=== PATIENT | female | born 1985 | race Two or more races ===

== ENCOUNTER 2024-05-07 00:35 | Emergency (ER) | payer MEDICAID, SELFPAY ==
[2024-05-07 00:35] VITALS: BMI 35.4
--- NOTE | 2024-05-07 00:43 | EKG_ITS ---
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
[2024-05-07 01:51] VITALS: BP 127/89; PULSE 76; RESP 16; TEMP 36.6; O2SAT 100
--- NOTE | 2024-05-07 02:06 | XR_ITS ---
Examination: PA chest single view TECHNIQUE: Upright PA chest single view Exam date and time: May 07, 2024 0210 hours INDICATIONS: Left-sided chest pain today FINDINGS: Normal heart size Lungs are clear. The osseous structures are intact IMPRESSION: No active disease
[2024-05-07 03:02] LABS: Basophils # (Auto) 0.1 Thou/mm3 (0.0-0.2); Basophils % (Auto) 0 % (0-2.5); Eosinophils # (Auto) 0.2 Thou/mm3 (0.0-0.5); Eosinophils % (Auto) 1 % (0-10); Hemoglobin 14.2 g/dL (12.0-16.0); Immature Granulocytes % (Auto) 0 % (0-0); Immature Granulocytes Auto 0.03 Thou/mm3 (0.00-0.00); Lymphocytes # (Auto) 3.7 Thou/mm3 (1.0-4.8); Lymphocytes % (Auto) 31 % (10-50); Mean Corpuscular HGB Conc 34.6 g/dl (31.0-37.0); Mean Corpuscular Hemoglobin 31.6 pg (25.0-35.0); Mean Corpuscular Volume 91 fL (80-100); Monocytes # (Auto) 0.6 Thou/mm3 (0.0-0.8); Monocytes % (Auto) 5 % (0-12); Neutrophils # (Auto) 7.2 Thou/mm3 (1.8-7.7); Neutrophils % (Auto) 61 % (37-80); Nucleated Red Blood Cell % 0 /100 WBC (0); Platelet Count 326 Thou/mm3 (140-440); RDW Standard Deviation 40.5 fL (36.4-46.3); Red Blood Count 4.49 Miln/mm3 (4.00-5.20); White Blood Count 11.7 Thou/mm3 (3.6-11.0)
[2024-05-07 03:21] LABS: Alanine Aminotransferase 43 U/L (10-49); Albumin, Serum 4.6 gm/dL (3.5-5.0); Albumin/Globulin Ratio 1.5 (1.2-2.2); Alkaline Phosphatase 95 U/L (46-116); Anion Gap 7 (7-16); Aspartate Amino Transferase 16 U/L (0-34); BUN/Creatinine Ratio 11 Ratio (12-20); Bilirubin,Total 0.5 mg/dL (0.3-1.2); Blood Urea Nitrogen 9 mg/dL (9-23); Calcium 10.1 mg/dL (8.3-10.6); Calcium (Corrected) 10.1 mg/dL (8.5-10.1); Carbon Dioxide 27.8 mMol/L (20.0-31.0); Chloride 104 mMol/L (98-107); Creatinine (Component) 0.8 mg/dL (0.6-1.3); Estimated Creatinine Clearance 98.2 mL/min (>60); Glucose 84 mg/dL (74-106); Osmolality,Calculated 275 (275-295); Sodium 139 mMol/L (136-145); Total Protein 7.6 gm/dL (5.7-8.2); Troponin I < 0.002 ng/mL (0.0-0.045); eGFR > 60 See Note
[2024-05-07 03:23] LABS: D-Dimer < 250 ng/mL (<600)
--- NOTE | 2024-05-07 03:43 | EDNOTE_ITS ---
<Statement entered by Anna Verdin MD - 05/07/24 05:44> As co-signing physician, I was present and available for consult prn. I concur with the plan and care as documented by the midlevel provider. ED Chest Pain RME/HPI General Chief Complaint: Chest Pain Stated Complaint: LFT CHEST PAIN RAD TO LEFT ARM X4HRS Time Seen by Provider: 05/07/24 02:06 Arrival date/time: 05/07/24 00:35 38F with history of anxiety presents to ED with 4 hours of CP and some L arm numbness/tingling that also goes to face. Patient states her anxiety attacks do not usually feel like this. Limitations: no limitations Related Data Home Medications ?Medication ?Instructions ?Recorded ?Confirmed docosanol 10 % topical cream 10 08/23/17 (Abreva) Previous Rx's ?Medication ?Instructions ?Recorded acyclovir 800 mg tablet 800 mg PO Q6H viral syndrome #35 08/23/17 tabs cyclobenzaprine 7.5 mg tablet 7.5 mg PO BID PRN muscle spasm #14 06/28/20 tabs methylprednisolone 4 mg tablets in 4 mg PO .as directed #21 tabs 06/28/20 a dose pack (Medrol (Yuri)) naproxen 500 mg tablet 500 mg PO BID PRN pain #30 tabs 06/28/20 diazepam 10 mg tablet (Valium) 10 mg PO BID PRN muscle spasm #20 08/03/21 tabs naproxen 500 mg tablet (Naprosyn) 500 mg PO BID PRN pain #30 tabs 08/03/21 ibuprofen 600 mg tablet 600 mg PO Q6H #30 tabs 10/15/23 metoclopramide HCl 10 mg tablet 10 mg PO Q6H PRN nausea and 10/15/23 (Reglan) vomiting #30 tabs Allergies Allergy/AdvReac Type Severity Reaction Status Date / Time No Known Allergies Allergy Verified 05/07/24 00:38 Review of Systems Review of Systems Systems Reviewed: All systems reviewed, normal except as documented Constitutional Constitutional: Reports system reviewed and no additional complaints, except as documented, Denies fever(s) and Denies headache(s) ENT Ears, Nose, Mouth, and Throat: Denies disequilibrium and Denies headache(s) Cardiovascular Cardiovascular: Reports system reviewed and no additional complaints, except as documented, Reports as per HPI, Reports chest pain, Denies dyspnea and Reports radiating jaw, neck or arm pain Respiratory Respiratory: Reports system reviewed and no additional complaints, except as documented, Denies cough and Denies dyspnea Gastrointestinal Gastrointestinal: Reports system reviewed and no additional complaints, except as documented, Denies abdominal pain, Denies nausea and Denies vomiting Musculoskeletal Musculoskeletal: Reports numbness and Reports tingling Neurologic Neurologic: Reports system reviewed and no additional complaints, except as documented, Reports as per HPI, Denies confusion, Denies disequilibrium, Denies headache(s), Reports numbness and Reports tingling Psychiatric Psychiatric: Denies confusion Past Medical History Past Medical History CARDIAC: Negative Cardiac Disorders or Congestive Heart Failure RESPIRATORY: Negative Chronic Obstructive Pulmonary Disease (COPD) or Asthma GENITOURINARY: Negative Renal Disease ENDOCRINE: Negative Diabetes Mellitus Type 1 or Diabetes Mellitus Type 2 HEMATOLOGIC: Positive Leukemia; Negative Sickle Cell Disease Social History SMOKING STATUS: Never smoker ED Exam General Limitations: Present no limitations General appearance: Present alert and in no apparent distress Head Head exam: Present atraumatic Eye Eye exam: Present normal appearance, PERRL and EOMI ENT ENT exam: Present normal exam, normal oropharynx and mucous membranes moist Neck Neck exam: Present normal inspection, full ROM and trachea midline Chest Chest inspection: Present normal inspection and symmetric chest wall rise Respiratory Respiratory exam: Present normal lung sounds bilaterally Cardiovascular Cardiovascular exam: Present regular rate, normal rhythm and normal heart sounds Abdominal Exam Abdominal exam: Present soft and normal bowel sounds Extremities Exam Extremities exam: Present normal inspection and full ROM Back Exam Back exam: Present normal inspection and full ROM Neurological Exam Neurological exam: Present alert, oriented X3 and CN II-XII intact Psychiatric Psychiatric exam: Present normal affect and normal mood Skin Skin exam: Present warm, dry, intact and normal color Course Quality Measures none Orders Category Date Time Status EKG (ED ONLY) *Do not use* NOW Care 05/07/24 00:43 Completed EKG (ED Only) Stat Exams 05/07/24 00:43 Draft XR chest 1V portable Stat Exams 05/07/24 02:06 Taken CBC Stat Lab 05/07/24 02:34 Completed Comprehensive Metabolic Panel Stat Lab 05/07/24 02:34 Completed D-Dimer Stat Lab 05/07/24 02:34 Completed Troponin I Stat Lab 05/07/24 02:34 Completed Vital Signs Vital signs: Vital Signs Temperature 97.9 F 12/11/24 01:51 Pulse Rate 76 05/07/24 01:51 Respiratory Rate 16 05/07/24 01:51 Blood Pressure 127/89 H 05/07/24 01:51 Pulse Oximetry (%) 100 05/07/24 01:51 Oxygen Delivery Method Room Air 05/07/24 01:51 O2 at 100% on RA and WNLs Chest Pain MDM Narrative MDM Narrative:: 38F with history of anxiety presents to ED with 4 hours of CP and some L arm numbness/tingling that also goes to face. Patient states her anxiety attacks do not usually feel like this. Physical exam reveals lungs. RRR. Patient is afebrile, calm, and alert. EKG is NSR. Wet CXR normal pending official report. Normal trop and D-dimer. CMP and CBC unremarkable. Patient observed for 3 hours in ED with no neg changes. Patient data External records reviewed:: [facility] [place] previous records Clinical information provided by:: patient Social determinants that could affect healthcare access:: mental health Patient has the following chronic illnesses:: anxiety How is presenting disease/condition affected by chronic disease/condition?: exacerbated by Evaluation data The following diagnostics were reviewed and interpreted by me:: lab results, radiology exam(s) and EKG tracing(s) Lab and/or radiology exams considered but not ordered:: ordered Interpretation Summary: above Medications / Prescriptions Medications or Prescriptions considered but not ordered:: not ordered Medication administrations:: n/a Consultations Consultation(s) initiated? (list below): No Diagnosis Chest Pain Differential Diagnosis: fracture of rib, pneumothorax, stable angina, unstable angina pectoris, atypical chest pain, st elevation myocardial infarction, costochondritis, chest pain, biliary colic and other (PE) Most likely diagnosis given after review of the tests above:: atypical chest pain Admission Indicated Admission indicated?: not indicated Admission Request Was there a request for admission?: No Disposition Plan Disposition Plan: Discharge Discharge Attestation Discharge Attestation: The patient and all family members were given an opportunity to ask questions and understood the discharge instructions. Discharge instructions specifically effects, indications for sooner follow up or return to the emergency department, and the expected course of current diagnosis. Patient condition: Stable Discharge Plan Plan Patient Disposition: HOME (Self Care) Disposition Comment: Stable Prescriptions/Referrals Prescriptions/Med Rec: No Action docosanol [Abreva] 10 % Cream 10 acyclovir 800 mg tablet 800 mg PO Q6H Qty: 35 0RF cyclobenzaprine 7.5 mg tablet 7.5 mg PO BID PRN (Reason: muscle spasm) Qty: 14 0RF methylprednisolone [Medrol (Yuri)] 4 mg tablets,dose pack 4 mg PO .as directed Qty: 21 0RF naproxen 500 mg tablet 500 mg PO BID PRN (Reason: pain) Qty: 30 0RF naproxen [Naprosyn] 500 mg tablet 500 mg PO BID PRN (Reason: pain) Qty: 30 0RF diazepam [Valium] 10 mg tablet 10 mg PO BID PRN (Reason: muscle spasm) Qty: 20 0RF ibuprofen 600 mg tablet 600 mg PO Q6H Qty: 30 0RF metoclopramide HCl [Reglan] 10 mg tablet 10 mg PO Q6H PRN (Reason: nausea and vomiting) Qty: 30 0RF Referrals: No Primary/Family,Physician [Primary Care Provider] - In 1 week Problem List Clinical Impression: Atypical chest pain Patient/Caregiver Discharge Instructions Education Materials: ED Pain, Acute, Uncertain Cause Additional Instructions: Please follow-up with PCP within 24-48 hours and return immediately if symptoms worsen. Print Language: Burkinan Stand Alone Forms: Patient Portal Info Letter PA/BELLPERSON Supervising Physician SAJI/YRAI Supervising Physician: Dr. Verdin
== END 2024-05-07 03:47 | disposition home or self-care (01) ==
PROVIDERS: Physician Assistant; Emergency Provider Emergency Medicine
DX: R07.89 Other chest pain (principal)
CPT/HCPCS: 36415; 71045; 80053; 84484; 85025; 85379; 93005; 99283

== ENCOUNTER 2024-05-25 21:25 | Emergency (ER) | payer MEDICAID, SELFPAY ==
[2024-05-25 21:25] VITALS: BMI 34.7
[2024-05-25 21:46] VITALS: BP 126/93; PULSE 88; RESP 18; TEMP 37.2; O2SAT 97
--- NOTE | 2024-05-25 21:49 | PD.EDRME ---
Rapid Medical Screening Exam RME Arrival date/time: 05/25/24 21:25 38 year old female present to Ed for c/o of n/v for 1 week + influenza I have greeted and performed a focused initial assessment of this patient. A comprehensive ED assessment and evaluation of the patient, analysis of all test results, and completion of the medical decision making process will be conducted by additional ED providers. Chief Complaint: Nausea/Vomiting/Diarrhea Time Seen by Provider: 05/25/24 21:29 Vital signs: Vital Signs Temperature 99 F 05/25/24 21:46 Pulse Rate 88 05/25/24 21:46 Respiratory Rate 18 05/25/24 21:46 Blood Pressure 126/93 H 05/25/24 21:46 Pulse Oximetry (%) 97 05/25/24 21:46 Oxygen Delivery Method Room Air 05/25/24 21:46
[2024-05-25] MEDS: ONDANSETRON INJ 2 MG/ML INJ 2 ML 4 MG IV (22:10)
[2024-05-25] MEDS: SODIUM CHLORIDE 0.9% 1000 ML 1,000 ML 999 ML IV (22:10)
--- NOTE | 2024-05-25 22:18 | EDNOTE_ITS ---
Nausea/Vomit./Diarrhea-RME/HPI General Chief complaint: Nausea/Vomiting/Diarrhea Stated complaint: NAUSEA / DIARRHEA X 5DAYS Time Seen by Provider: 05/25/24 21:29 Arrival date/time: 05/25/24 21:25 RME / HPI RME / HPI Narrative: 05/25/24 21:25 38 year old female present to Ed for c/o of n/v for 1 week + influenza I have greeted and performed a focused initial assessment of this patient. A comprehensive ED assessment and evaluation of the patient, analysis of all test results, and completion of the medical decision making process will be conducted by additional ED providers. ------ Dr. Barron?s Main ED Evaluation: 38yo female presents to the ED for complaints of flu-like symptoms x 5 days. Patient states she's had a decreased intake for the last 5 days. She endorses having associated body aches, N/V/D, a headache, and a cough. She states she tried having some crackers and a soda today, but was not able to tolerate it today, so she came in for evaluation. She did not get her flu shot this year. She denies any fever, chills or any other associated symptoms. Denies any possibility of being . No known allergies. Related Data Home Medications ?Medication ?Instructions ?Recorded ?Confirmed docosanol 10 % topical cream 10 08/23/17 (Abreva) Previous Rx's ?Medication ?Instructions ?Recorded acyclovir 800 mg tablet 800 mg PO Q6H viral syndrome #35 08/23/17 tabs cyclobenzaprine 7.5 mg tablet 7.5 mg PO BID PRN muscle spasm #14 06/28/20 tabs methylprednisolone 4 mg tablets in 4 mg PO .as directed #21 tabs 06/28/20 a dose pack (Medrol (Yuri)) naproxen 500 mg tablet 500 mg PO BID PRN pain #30 tabs 06/28/20 diazepam 10 mg tablet (Valium) 10 mg PO BID PRN muscle spasm #20 08/03/21 tabs naproxen 500 mg tablet (Naprosyn) 500 mg PO BID PRN pain #30 tabs 08/03/21 ibuprofen 600 mg tablet 600 mg PO Q6H #30 tabs 10/15/23 metoclopramide HCl 10 mg tablet 10 mg PO Q6H PRN nausea and 10/15/23 (Reglan) vomiting #30 tabs acetaminophen 325 mg tablet (Pain 650 mg (2 x 325 mg) PO Q6H PRN 05/26/24 Relief (acetaminophen)) fever or pain 5 days #40 tabs diphenhydramine HCl 25 mg capsule 25 mg PO TID PRN nausea and 05/26/24 (Allergy (diphenhydramine)) vomiting #20 caps ibuprofen 600 mg tablet 600 mg PO Q6H PRN fever or pain 05/26/24 #30 tabs metoclopramide HCl 10 mg tablet 10 mg PO Q6H PRN nausea and 05/26/24 vomiting #14 tabs nitrofurantoin 100 mg PO Q12H 5 days #10 caps 05/26/24 monohydrate/macrocrystals 100 mg capsule (Macrobid) Allergies Allergy/AdvReac Type Severity Reaction Status Date / Time No Known Allergies Allergy Verified 05/07/24 00:38 Review of Systems Review of Systems Systems Reviewed: All systems reviewed, normal except as documented Past Medical History Past Medical History CARDIAC: Negative Cardiac Disorders or Congestive Heart Failure RESPIRATORY: Negative Chronic Obstructive Pulmonary Disease (COPD) or Asthma GENITOURINARY: Negative Renal Disease ENDOCRINE: Negative Diabetes Mellitus Type 1 or Diabetes Mellitus Type 2 HEMATOLOGIC: Positive Leukemia; Negative Sickle Cell Disease Social History SMOKING STATUS: Never smoker ED Exam Narrative Physical exam: GENERAL APPEARANCE: alert and oriented x 4, is actively coughing, well- developed, well-nourished, no acute distress VITALS: All vitals were reviewed and the pulse ox is 97% on room air, which is normal according to my interpretation. HEENT: Normocephalic, atraumatic; pupils equal, round, reactive to light; EOMI; mucous membranes pink, moist; oropharynx clear NECK: Supple LUNGS: CTABL; no wheezes, no rales, no rhonchi HEART: Regular rate, regular rhythm; normal S1, S2; no murmurs ABDOMEN: non distended; normal BS; soft, no tenderness, no guarding, no rebound; no masses, no organomegaly, no hernia BACK: no CVA tenderness EXTREMITIES: atraumatic; no edema NEUROLOGIC: awake; alert and oriented x4; cranial nerves II-XII grossly intact; no focal sensory or motor deficits PSYCHIATRIC: appropriate mood and affect SKIN: warm, dry, normal color; no rashes Course Quality Measures none Orders Category Date Time Status CBC Stat Lab 05/25/24 23:05 Completed CMP [Comprehensive Metabolic Panel] Stat Lab 05/25/24 23:05 Completed HCG,Qualitative Serum Stat Lab 05/25/24 23:05 Completed Lipase Stat Lab 05/25/24 23:05 Completed Strep A Rapid Stat Lab 05/25/24 22:05 Completed UA [Urinalysis] Stat Lab 05/25/24 22:08 Completed Urine Culture Stat Lab 05/25/24 22:17 Received Acetaminophen Tab [Tylenol ES Tab] Med 05/25/24 22:28 Discontinued 1,000 mg PO X1 ONE DiphenhydrAMINE INJ [Benadryl Inj] Med 05/26/24 00:10 Discontinued 12.5 mg IVP X1 ONE Ibuprofen Tab [Motrin Tab] Med 05/25/24 22:28 Discontinued 600 mg PO X1 ONE Metoclopramide Inj [Reglan Inj] Med 05/26/24 00:10 Discontinued 10 mg IVP X1 ONE Ondansetron Inj [Zofran Inj] Med 05/25/24 21:48 Discontinued 4 mg IV X1 ONE Sodium Chloride 0.9% 1000 ml [Ns] 1,000 ml Med 05/25/24 21:48 Discontinued IV 999 mls/hr Reevaluation(s) Reevaluation #1: Patient states she feels significantly better after receiving Reglan and feels comfortable going home. Time: 01:25 Vital Signs Vital signs: Vital Signs Temperature 99 F 05/25/24 21:46 Pulse Rate 88 05/25/24 21:46 Respiratory Rate 18 05/25/24 21:46 Blood Pressure 126/93 H 05/25/24 21:46 Pulse Oximetry (%) 97 05/25/24 21:46 Oxygen Delivery Method Room Air 05/25/24 21:46 Nausea/Vomiting/Diarrhea MDM Narrative MDM Narrative:: Scribe Attestation: 05/25/24 Anastasia Neil am scribing for and in the presence of Dr. Barron. Patient data External records reviewed:: [facility] previous records (Per chart review, patient was seen here on 05/07/24 for atypical chest pain.) Clinical information provided by:: patient Social determinants that could affect healthcare access:: none Patient has the following chronic illnesses:: leukemia How is presenting disease/condition affected by chronic disease/condition?: uneffected by Evaluation data The following diagnostics were reviewed and interpreted by me:: lab results Lab and/or radiology exams considered but not ordered:: none Interpretation Summary: CBC is normal, CMP is normal, Lipase is normal, HCG is negative, UA is positive for a UTI, according to my interpretation. Medications / Prescriptions Medications / Prescriptions considered but not ordered:: none Medication administrations:: Medication Administration History Discontinued Medications Acetaminophen (Acetaminophen 500 Mg Tablet) 1,000 mg PO X1 ONE Stop: 05/25/24 22:29 Last Admin: 05/25/24 22:56 Dose: 1,000 mg Documented By: MORENITA Diphenhydramine HCl (Diphenhydramine Inj 50 Mg/Ml Vial) 12.5 mg IVP X1 ONE Stop: 05/26/24 00:11 Last Admin: 05/26/24 00:35 Dose: 12.5 mg Documented By: Sodium Chloride (Ns) 1,000 mls @ 999 mls/hr IV .Q1H1M ONE Stop: 05/25/24 22:48 Last Infusion: 05/25/24 22:41 Dose: Infused Documented By: Admin: 05/25/24 22:10 Dose: 999 mls/hr Documented By: RICHELLE Ibuprofen (Ibuprofen Tab 600 Mg Tablet) 600 mg PO X1 ONE Stop: 05/25/24 22:29 Last Admin: 05/25/24 22:56 Dose: 600 mg Documented By: MORENITA Metoclopramide HCl (Metoclopramide Inj 5 Mg/Ml Vial 2 Ml) 10 mg IVP X1 ONE; Protocol Stop: 05/26/24 00:11 Last Admin: 05/26/24 00:31 Dose: 10 mg Documented By: Ondansetron HCl (Ondansetron Inj 2 Mg/Ml Inj 2 Ml) 4 mg IV X1 ONE; Protocol Stop: 05/25/24 21:49 Last Admin: 05/25/24 22:10 Dose: 4 mg Documented By: RICHELLE see above Consultations Consultation(s) initiated? (list below): No Diagnosis Nausea Differential Diagnosis: dehydration and other (COVID, Influenza, viral syndrome, electrolyte abnormality) Most likely diagnosis given after review of the tests above:: see below Admission Indicated Admission indicated?: not indicated Admission Request Was there a request for admission?: No Disposition Plan Disposition Plan: Discharge Discharge Attestation Discharge Attestation: The patient and all family members were given an opportunity to ask questions and understood the discharge instructions. Discharge instructions specifically effects, indications for sooner follow up or return to the emergency department, and the expected course of current diagnosis. Patient condition: Stable Discharge Plan Plan Patient Disposition: HOME (Self Care) Disposition Comment: Stable for discharge home Patient condition on transfer: Stable Prescriptions/Referrals Prescriptions/Med Rec: New metoclopramide HCl 10 mg tablet 10 mg PO Q6H PRN (Reason: nausea and vomiting) Qty: 14 0RF Rx Instructions: You should take this medicine with a half a tab of Benadryl. This is for nausea. diphenhydramine HCl [Allergy (diphenhydramine)] 25 mg capsule 25 mg PO TID PRN (Reason: nausea and vomiting) Qty: 20 0RF Rx Instructions: You should take half of 1 of these caps with your metoclopramide for nausea. nitrofurantoin monohyd/m-cryst [Macrobid] 100 mg capsule 100 mg PO Q12H 5 Days Qty: 10 0RF Rx Instructions: must administer with a meal/food acetaminophen [Pain Relief (acetaminophen)] 325 mg tablet 650 mg PO Q6H PRN (Reason: fever or pain) 5 Days Qty: 40 0RF ibuprofen 600 mg tablet 600 mg PO Q6H PRN (Reason: fever or pain) Qty: 30 0RF No Action docosanol [Abreva] 10 % Cream 10 acyclovir 800 mg tablet 800 mg PO Q6H Qty: 35 0RF cyclobenzaprine 7.5 mg tablet 7.5 mg PO BID PRN (Reason: muscle spasm) Qty: 14 0RF methylprednisolone [Medrol (Yuri)] 4 mg tablets,dose pack 4 mg PO .as directed Qty: 21 0RF naproxen 500 mg tablet 500 mg PO BID PRN (Reason: pain) Qty: 30 0RF naproxen [Naprosyn] 500 mg tablet 500 mg PO BID PRN (Reason: pain) Qty: 30 0RF diazepam [Valium] 10 mg tablet 10 mg PO BID PRN (Reason: muscle spasm) Qty: 20 0RF ibuprofen 600 mg tablet 600 mg PO Q6H Qty: 30 0RF metoclopramide HCl [Reglan] 10 mg tablet 10 mg PO Q6H PRN (Reason: nausea and vomiting) Qty: 30 0RF Referrals: [facility] [Outside] - In 1 week No Primary/Family,Physician [Primary Care Provider] - In 1 week Problem List Clinical Impression: Urinary tract infection, Influenza A, Vomiting Patient/Caregiver Discharge Instructions Discharge Activity: activity as tolerated Education Materials: Urinary Tract Infections in Women, Understanding Urinary Tract ..., Self-Care for Vomiting and Diarrhea, The Flu (Influenza), ED Influenza (Adult), ED Vomiting (Adult) Additional Instructions: Your tests today showed that you were dehydrated and you also have a urinary tract infection. At your pharmacy have sent several medications. One of them is called metoclopramide and that your antinausea medicine. You should take this with a half a tab of Benadryl. You can do this up to 4 times a day if you need to for nausea and vomiting. I have also written a prescription for an antibiotic called Macrobid. He take that twice a day until they are completely gone. I have also sent prescriptions for ibuprofen and acetaminophen. You should take those together every 6 hours for pain and/or fevers. Please return to the ER if you are not getting better within 48 hours or if you worsen in any way. Otherwise you should follow-up in the [facility] within the next several days. Print Language: Malay Stand Alone Forms: Alicia Award Info., Patient Portal Info Letter
[2024-05-25 22:54] LABS: Strep A Rapid Negative (Negative)
[2024-05-25] MEDS: IBUPROFEN TAB 600 MG TABLET PO (22:56)
[2024-05-25] MEDS: ACETAMINOPHEN 500 MG TABLET 1000 MG PO (22:56)
[2024-05-25 23:22] LABS: Collection Type, Urine Voided
[2024-05-25 23:23] LABS: Basophils % (Auto) 0 % (0-2.5); Eosinophils % (Auto) 0 % (0-10); Hematocrit 42.5 % (36.0-46.0); Hemoglobin 14.7 g/dL (12.0-16.0); Immature Granulocytes % (Auto) 0 % (0-0); Immature Granulocytes Auto 0.01 Thou/mm3 (0.00-0.00); Lymphocytes # (Auto) 2.2 Thou/mm3 (1.0-4.8); Lymphocytes % (Auto) 51 % (10-50); Mean Corpuscular HGB Conc 34.6 g/dl (31.0-37.0); Mean Corpuscular Hemoglobin 31.3 pg (25.0-35.0); Mean Corpuscular Volume 91 fL (80-100); Monocytes # (Auto) 0.6 Thou/mm3 (0.0-0.8); Monocytes % (Auto) 13 % (0-12); Neutrophils # (Auto) 1.5 Thou/mm3 (1.8-7.7); Neutrophils % (Auto) 36 % (37-80); Nucleated Red Blood Cell % 0 /100 WBC (0); Platelet Count 206 Thou/mm3 (140-440); RDW Standard Deviation 40.5 fL (36.4-46.3); Red Blood Count 4.69 Miln/mm3 (4.00-5.20); White Blood Count 4.3 Thou/mm3 (3.6-11.0)
[2024-05-25 23:28] LABS: Bacteria,Urine 1+; Bilirubin,Urine 1+ (Negative); Blood,Urine Trace (Negative); Color,Urine Yellow (Lt Yel-Yel); Glucose, Urine Negative (Negative); Ketones,Urine 4+ (Negative); Leukocyte Esterase,Urine Negative (Negative); Nitrite,Urine Negative (Negative); PH,Urine 6.5 (5.0-7.0); Protein,Urine 3+ (Neg - Trace); RBC,Urine 13 /hpf (0-3); Specific Gravity,Urine 1.043 (1.001-1.035); Squamous Epithelial Cell,Urine 29 /hpf (0-5); WBC,Urine 18 /hpf (0-5)
[2024-05-25 23:30] LABS: Clarity,Urine Hazy (Clear/Hazy)
[2024-05-25 23:52] LABS: Alanine Aminotransferase 58 U/L (10-49); Albumin, Serum 4.1 gm/dL (3.5-5.0); Albumin/Globulin Ratio 1.5 (1.2-2.2); Alkaline Phosphatase 94 U/L (46-116); Anion Gap 6 (7-16); Aspartate Amino Transferase 48 U/L (0-34); BUN/Creatinine Ratio 16 Ratio (12-20); Bilirubin,Total 0.3 mg/dL (0.3-1.2); Blood Urea Nitrogen 11 mg/dL (9-23); Calcium 9.1 mg/dL (8.3-10.6); Calcium (Corrected) 9.1 mg/dL (8.5-10.1); Carbon Dioxide 26.6 mMol/L (20.0-31.0); Chloride 107 mMol/L (98-107); Creatinine (Component) 0.7 mg/dL (0.6-1.3); Globulin 2.7 gm/dL (2.3-3.5); Glucose 87 mg/dL (74-106); Lipase 46 U/L (12-53); Osmolality,Calculated 277 (275-295); Potassium 4.3 mMol/L (3.4-5.1); Sodium 140 mMol/L (136-145); Total Protein 6.8 gm/dL (5.7-8.2); eGFR > 60 See Note
[2024-05-26 00:10] LABS: HCG,Qualitative Serum Negative
[2024-05-26] MEDS: METOCLOPRAMIDE INJ 5 MG/ML VIAL 2 ML 10 MG IVP (00:31)
[2024-05-26] MEDS: DiphenhydrAMINE INJ 50 MG/ML VIAL 12.5 MG IVP (00:35)
[2024-05-26 00:42] VITALS: BP 111/84; PULSE 91; RESP 17; TEMP 37.4; O2SAT 99
== END 2024-05-26 01:39 | disposition home or self-care (01) ==
PROVIDERS: Physician Assistant; Emergency Provider Emergency Medicine
DX: J10.1 Influenza due to other identified influenza virus with other respiratory manifestations (principal); N39.0 Urinary tract infection, site not specified
CPT/HCPCS: 36415; 80053; 81001; 83690; 84703; 85025; 87086; 87651; 96361; 96374; 96375; 99284; J1200; J2405; J2765; J7030; A9270

== ENCOUNTER 2024-12-06 20:29 | Emergency (ER) | payer MEDICAID, SELFPAY ==
[2024-12-06 21:50] VITALS: BP 126/83; PULSE 68; RESP 20; TEMP 37.3; O2SAT 97; BMI 34.7
--- NOTE | 2024-12-06 22:30 | EDNOTE_ITS ---
ED Back Injury Pain RME/HPI General Chief Complaint: Back Pain/Injury Stated Complaint: BACK PAIN Time Seen by Provider: 12/06/24 21:50 Arrival date/time: 12/06/24 20:29 RME / HPI RME / HPI Narrative: 39-year-old female presents to the ED with a complaint of exacerbation of her chronic low back pain. She states she was doing some heavy cleaning yesterday and woke up fine this morning but went outside and was watering her lawn and cam e in and states she can barely stand up due to the pain. She denies any loss of bladder or bowel control. She denies any dysuria or frequency. She denies any recent illness with fever, chills, cough, upper respiratory complaints, nausea, vomiting, diarrhea or abdominal pain. She has chronic right lateral lower leg numbness that extends down to her right great toe. No changes. She states this is a typical exacerbation of her pain. Related Data Home Medications ?Medication ?Instructions ?Recorded ?Confirmed docosanol 10 % topical cream 10 08/23/17 ([facility]) Previous Rx's ?Medication ?Instructions ?Recorded acyclovir 800 mg tablet 800 mg PO Q6H viral syndrome #35 08/23/17 tabs cyclobenzaprine 7.5 mg tablet 7.5 mg PO BID PRN muscle spasm #14 06/28/20 tabs methylprednisolone 4 mg tablets in 4 mg PO .as directe d #21 tabs 06/28/20 a dose pack (Medrol (Yuri)) naproxen 500 mg tablet 500 mg PO BID PRN pain #30 t abs 06/28/20 diazepam 10 mg tablet (Valium) 10 mg PO BID PRN muscle spasm #20 08/03/21 tabs naproxen 500 mg tablet (Naprosyn) 500 mg PO BID PRN pa in #30 tabs 08/03/21 ibuprofen 600 mg tablet 600 mg PO Q6H #30 tabs 10/14 metoclopramide HCl 10 mg tablet 10 mg PO Q6H PRN nause a and 10/15/23 (Reglan) vomiting #30 tabs diphenhydramine HCl 25 mg capsule 25 mg PO TID PRN mario sea and 05/26/24 (Allergy (diphenhydramine)) vomiting #20 caps ibuprofen 600 mg tablet 600 mg PO Q6H PRN fever or p ain 12/30/24 #30 tabs metoclopramide HCl 10 mg tablet 10 mg PO Q6H PRN nause a and 05/26/24 vomiting #14 tabs Allergies Allergy/AdvReac Type Severity Reaction Status Date / Time No Known Allergies Allergy Verified 12/06/24 20:30 Review of Systems Review of Systems Systems Reviewed: All systems reviewed, normal except as documented Past Medical History Past Medical History CARDIAC: Negative Cardiac Disorders or Congestive Heart Failure RESPIRATORY: Negative Chronic Obstructive Pulmonary Disease (COPD) or Asthma GENITOURINARY: Negative Renal Disease ENDOCRINE: Negative Diabetes Mellitus Type 1 or Diabetes Mellitus Type 2 HEMATOLOGIC: Positive Leukemia; Negative Sickle Cell Disease Social History SMOKING STATUS: Never smoker ED Exam Narrative Physical exam: Alert and oriented 39-year-old female, mild acute pain distress. Lungs are clear, regular rate and rhythm. Abdomen is soft and nontender. No cervical, thoracic, lumbar spine tenderness to palpation. Left sciatic notch tenderness noted. No right sciatic notch tenderness noted. Negative straight leg raise bilaterally. No CVA tenderness. Equal pedal push/pull. Equal and normal DTRs to bilateral lower extremities. Course Vital Signs Vital signs: Vital Signs Temperature 99.1 F 12/06/24 21:50 Pulse Rate 68 12/06/24 21:50 Respiratory Rate 20 12/06/24 21:50 Blood Pressure 126/83 12/06/24 21:50 Pulse Oximetry (%) 97 12/06/24 21:50 Oxygen Delivery Method Room Air 12/06/24 21:50 Discharge Plan Prescriptions/Referrals Prescriptions/Med Rec: No Action docosanol [Abreva] 10 % Cream 10 acyclovir 800 mg tablet 800 mg PO Q6H Qty: 35 0RF cyclobenzaprine 7.5 mg tablet 7.5 mg PO BID PRN (Reason: muscle spasm) Qty: 14 0RF methylprednisolone [Medrol (Yuri)] 4 mg tablets,dose pack 4 mg PO .as directed Qty: 21 0RF naproxen 500 mg tablet 500 mg PO BID PRN (Reason: pain) Qty: 30 0RF naproxen [Naprosyn] 500 mg tablet 500 mg PO BID PRN (Reason: pain) Qty: 30 0RF diazepam [Valium] 10 mg tablet 10 mg PO BID PRN (Reason: muscle spasm) Qty: 20 0RF metoclopramide HCl 10 mg tablet 10 mg PO Q6H PRN (Reason: nausea and vomiting) Qty: 14 0RF Rx Instructions: You should take this medicine with a half a tab of Benadryl. This is for nausea. diphenhydramine HCl [Allergy (diphenhydramine)] 25 mg capsule 25 mg PO TID PRN (Reason: nausea and vomiting) Qty: 20 0RF Rx Instructions: You should take half of 1 of these caps with your metoclopramide for nausea. ibuprofen 600 mg tablet 600 mg PO Q6H PRN (Reason: fever or pain) Qty: 30 0RF ibuprofen 600 mg tablet 600 mg PO Q6H Qty: 30 0RF metoclopramide HCl [Reglan] 10 mg tablet 10 mg PO Q6H PRN (Reason: nausea and vomiting) Qty: 30 0RF Patient/Caregiver Discharge Instructions Print Language: Nigerien
[2024-12-06] MEDS: DIAZEPAM 5 MG TABLET 10 MG PO (22:45)
[2024-12-06] MEDS: DEXAMETHASONE SOD PHOS INJ 10 MG/ML VIAL PO (22:46)
[2024-12-06] MEDS: KETOROLAC INJ 60 MG/2 ML VIAL 30 MG IM (22:48)
== END 2024-12-06 23:00 | disposition left against medical advice (07) ==
LOC: SERX 12-07 00:39
PROVIDERS: Emergency Provider Emergency Medicine
DX: M54.50 Low back pain, unspecified (principal); G89.29 Other chronic pain; Z53.29 Procedure and treatment not carried out because of patient's decision for other reasons
CPT/HCPCS: 96372; 99283; J1100; J1885; A9270